=== PATIENT | female | born 1950 | race Two or more races ===

== ENCOUNTER 2017-10-19 12:00 | Inpatient (IN) | payer OTHER ==
[~2017-10-19] VITALS: Ht 157.5 cm; Wt 64.0 kg
[2017-10-19] MEDS ORDERED: SYNTHROID75 MCG PO (16:37)
[2017-10-19] MEDS ORDERED: HYOSCYAMINE0.125 MG PO (16:38)
[2017-10-19] MEDS ORDERED: LIPITOR20 MG PO (16:38)
[2017-10-19] MEDS ORDERED: ZANTAC300 MG PO (16:42)
[2017-10-19] MEDS ORDERED: LIBRAX PO (16:42)
== END 2017-10-29 15:02 | disposition home or self-care (01) | DRG 331 ==
LOC: SURH 10-24 07:00 → SURG 10-24 07:29 → O/R 10-24 07:29 → SURH 10-24 12:00 → SURG 10-24 19:41
PROVIDERS: Surgery
PROC: 07TC4ZZ Resection of Pelvis Lymphatic, Percutaneous Endoscopic Approach (ICD-10-PCS; 2017-10-24)
PROC: 0DNW4ZZ Release Peritoneum, Percutaneous Endoscopic Approach (ICD-10-PCS; 2017-10-24)
PROC: 0DTU4ZZ Resection of Omentum, Percutaneous Endoscopic Approach (ICD-10-PCS; 2017-10-24)
PROC: 0DJD8ZZ Inspection of Lower Intestinal Tract, Via Natural or Artificial Opening Endoscopic (ICD-10-PCS; 2017-10-24)
PROC: 0DTN4ZZ Resection of Sigmoid Colon, Percutaneous Endoscopic Approach (ICD-10-PCS; principal; 2017-10-24 07:00)
DX: K57.32 Diverticulitis of large intestine without perforation or abscess without bleeding (principal); E03.8 Other specified hypothyroidism; E78.4 Other hyperlipidemia; D64.89 Other specified anemias